=== PATIENT | female | born 1940 | race Caucasian/White ===

== ENCOUNTER 2018-09-25 08:38 | Emergency (ER) | payer OTHER ==
[~2018-09-25] VITALS: Ht 162.6 cm; Wt 58.4 kg
[2018-09-25 11:23] VITALS: BP 130/59
== END 2018-09-25 11:23 | disposition home or self-care (01) ==
LOC: ER 08:38
DX: I83.893 Varicose veins of bilateral lower extremities with other complications (principal); Z88.0 Allergy status to penicillin